=== PATIENT | male | born 1960 | race Caucasian/White ===

== ENCOUNTER 2016-12-30 14:11 | Inpatient (IN) | payer OTHER ==
[~2016-12-30] VITALS: Ht 180.3 cm; Wt 106.1 kg
[~2016-12-30 14:11] MED LIST: BENZ1TAB7 PO; OLAN5TAB PO; PARO20TA5 PO; ZLP5T PO
[2016-12-30 17:49] VITALS: BP 133/88; PULSE 90; RESP 18; O2SAT 96
--- NOTE | 2016-12-30 17:51 | NUR ---
Admit Patient admitted into room 1025 from Urgent Care. Patient ambulated to room from desk, was placed in a gown, oriented to room, and the call light is within reach. Denies pain, but states his LLE has occasional sharp pains. Assessment completed. Awaiting orders.
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
[2016-12-30] MEDS ORDERED: TRAZ-118 PO (19:53)
[2016-12-30] MEDS ORDERED: Ondansetron 2 mg/mL 2 mL Inj IVPUSH PRN (20:20)
[2016-12-30] MEDS ORDERED: Alum-Mag Hydrox-Simeth 30 mL Suspension PO PRN (20:20)
[2016-12-30] MEDS ORDERED: Polyethylene Glycol (PEG) 17 Gm Powder PO PRN (20:20)
[2016-12-30 20:40] VITALS: BP 124/70; PULSE 77; RESP 20; O2SAT 96
[2016-12-30] MEDS: Vancomycin Dose per Pharmacist XX SCH (20:40)
[2016-12-30] MEDS ORDERED: Vancomycin Inj 2,000 MG in 0.9% Sodium Chloride 500 ML IV ONE (21:00)
[2016-12-30 21:36] LABS: BASOPHILS % (AUTO) 0.2 % (0-3); EOSINOPHILS % (AUTO) 1.4 % (0-5); MONOCYTES % (AUTO) 10.2 % (4-12); Mean Corpuscular Hemoglobin 31.4 pg (27.0-35.0); Mean Corpuscular Volume 94.3 fL (81-100); NEUTROPHILS % (AUTO) 63.3 % (40-74); Platelet Count 222 bil/L (150-400)
[2016-12-30] MEDS ORDERED: CEPH500C PO (21:52)
[2016-12-30 22:01] LABS: INR 0.92 ratio
[2016-12-30 22:07] LABS: Magnesium 2.2 mg/dL (1.6-2.6)
--- NOTE | 2016-12-30 22:59 | PCM.CONPHA ---
Subjective Date of Service: Dec 30, 2016 Requesting Provider: Devante Jacobsen DO Left lower extremity cellulitis History of Present Illness worsening cellulitis of lower extremity, failed outpatient po Keflex and Rocephin iv one dose Reason for Pharmacy Consult: Vancomycin Dosing Objective Assessment/Plan Assessment/Plan A/ - 56 y/o male patient checked in from urgent care for worsening cellulitis on lower extremity which started a couple days ago. Vancomycin ordered for empirical coverage since patient has hx of MRSA, IVDU, and failed outpatient po Keflex - Afebrile. WBC: 8.1, blood cultures (2), nasal MRSA screen pending - ID consult requested in am - Wt: 105kg, ht: 180cm, SCr: 0.84 mg/dL, estimated clearance ~ 120 ml/min ( ABW, globalRP) BMI: 32.3kg/m2, t1/2~7hrs, Vd~63L P/ - Loading dose Vancomycin 2G iv, then 1250mg iv q8h. Trough level ordered before 4th dose @12/31 Pharmacy will continue to follow and make necessary adjustment Thank you for consulting clinical pharmacy in the care of this patient Ilia Valiente Dec 30, 2016 22:59
[2016-12-31] VITALS (7 sets, daily range): BP systolic 107–115; BP diastolic 63–88; PULSE 67–79; RESP 16–20; O2SAT 92–96
[2016-12-31] MEDS: Heparin 5,000 Unit/mL Inj SUBQ SCH ×3 (01:14→16:24)
--- NOTE | 2016-12-31 01:20 | NUR ---
Med Rec Pt able to state which pills he takes but is unsure of quantity, med rec complete based on his knowledge. Home keflex in drawer to be delivered to pharmacy, pt unable to sign now as he is sleeping and difficult to rouse. IV site on L hand infusing NS TKO until next abx dose. Cellulitis on lower leg has two outlines drawn by urgent care. Red center is spreading up and down leg, no open blisters at this time. Pt admitted to cocaine use 12/29, and hx of IV drug use was heroin several years ago. No sharps container in room, pt has been cooperative and no negative behaviors. Care continues
[2016-12-31] MEDS: Vancomycin Inj 1,250 MG in 0.9% Sodium Chloride 250 ML IV SCH ×3 (05:40→21:46)
[2016-12-31 05:50] LABS: APPEARANCE,URINE CLEAR (CLEAR,HAZY); COLOR,URINE YELLOW (YELLOW); OCCULT BLOOD,URINE TRACE (NEGATIVE)
[2016-12-31] MEDS: Vancomycin Dose per Pharmacist XX SCH (08:30)
[2016-12-31] MEDS: Albuterol-Ipratropium 3 mL Inhalation Solution NEB SCH ×2 (12:50→20:34)
--- NOTE | 2016-12-31 13:48 | NUR ---
Left Calf Left calf has shown some improvement compared to yesterday. Overnight and while in bed the patient has kept the left leg elevated on a pillow and there is a slight decrease in swelling and the patient denies any pain. Ambulating in room independently, general diet is well tolerated, and continues to be afebrile. Hourly rounding continues and continuing to assess changes in LLE.
--- NOTE | 2016-12-31 19:26 | PCM.PNMED ---
Subjective Date of Service Dec 31, 2016 Subjective Pt reports improved swelling in LLE, but says erythema is unchanged. Pain 2/10 LLE. Exam Vital Signs Vital Sign - Last Date Time Temp Pulse Resp B/P Pulse Ox O2 Delivery O2 Flow Rate FiO2 12/31/16 15:42 36.4 18 110/88 96 Room Air 12/31/16 12:53 67 Intake and Output 12/30/16 12/30/16 12/31/16 Cumulative From/Thru 15:00 23:00 07:00 12/30/16 20:42 - 12/31/16 06:30 Intake Total 440 ml 440 ml Output Total 1250 ml 1250 ml Balance -810 ml -810 ml Intake Oral 440 ml 440 ml Output Urine Total 1250 ml 1250 ml # Bowel Movements 0 0 Exam General: He is alert and oriented 3, resting comfortably in bed speaking in full sentences, in no apparent distress. Patient responds appropriately to questioning and is cordial. HEENT: NC/AT, eyes, PERRLA, EOMI, conjunctiva mildly bloodshot, neck, soft supple, no adenopathy, no JVD, no masses, no thyromegaly, throat mucous membranes pink and moist, no erythema, no exudates, no tonsillar swelling, no uvular deviation. Dentures on the top and partial on the bottom Lungs: Bilateral diffuse inspiratory neck score wheezes, no rhonchi, no crackles , no use of accessory muscles of respiration, moderate air movement, good respiratory effort. Heart: Regular rate and rhythm, no murmur, S1-S2 present, no rub, no click, no distant heart sounds, Abdomen: Protuberant, old midline scar near umbilicus measuring 15-20 cm, well- healed, abdomen is Soft, nontender, nondistended, bowel sounds active, no rebound, no guarding, Genitourinary: No CVA tenderness, no suprapubic tenderness, no Davies catheter, Extremities: Muscle strength, 5 out of 5 upper/lower extremity and symmetric laterally, reflexes 2 out of 4 upper/lower extremity and symmetric bilaterally, pulses equal and symmetric upper/lower extremity including radial and dorsalis pedis' The left lower extremity appears erythematous, warm, and edematous compared to the left. The Area of infection is located on the anterior leg/benton. There are 2 different lines of demarcation 1 surrounding the midportion and 1 surrounding the less erythematous portion. The erythema is crossing both lines of demarcation. There is normal. Sinus injury however there are too small to centimeter dimples located in the very center of the left lower extremity site infection that could be consistent with a prior injury. The erythema is wrapping around to the back of the grocery calf. The right lower extremity has a scaly rash with erythematous border on the dorsal foot consistent with tinea pedis. Severe onychomycosis of both lower extremity digits. Neurologic: See neurologically intact, PT in full sentences, no focal neurological signs, [id number], [id number], no pronator drift, no hemineglect. Skin: As previously stated Psychiatric: Mood is cheerful and mood and affect are congruent and appropriate. Lab and Diagnostics Result Diagram: 12/30/16212412/30/162124 Assessment & Plan PET is a pleasant 56-year-old male with past medical history of left lower extremity cellulitis, who presented for direct admit from urgent care after having failed outpatient treatment. He was admitted for IV antibiotics and medical management. # Acute onset left lower extremity cellulitis, present on at admission, active - Vital signs on presentation were as follows: Temperature 36.8, pulse 90, respiratory rate 18, blood pressure 133/88 with a map 103, oxygen 96% on room air. - Patient does not meet sepsis criteria. - Patient was treated with Rocephin shot at urgent care and given outpatient by mouth antibiotics Keflex 500 mg every 6. Patient failed this regimen - Differential diagnosis includes beta-hemolytic streptococcal infection of the skin, versus Staphylococcus aureus (MSSA vs MRSA) - Patient did grow oxacillin resistant Staphylococcus aureus according to [facility] record from 2008 - He again had microscopic evidence in 2015 of the skin that showed gram- positive cocci. - Physical exam showed 12 x 8 cm dark erythematous, warm, edematous skin surrounded by a music agent area of redness both of which were extending beyond the lines of demarcation. - There was no purulent material available for culture - MRSA nasal swab ordered and pending - Cultures 2 ordered and pending - cellulitis is consistent with a streptococcal skin infection, however given patient's history of oxacillin resistant staph aureus will start patient on vancomycin IV, pharmacy to dose. - Transition to PO abx for discharge. # History of tobacco abuse - Nicotine patch # History of undiagnosed mood disorder on antipsychotic medication - Denies medication olanzapine # History of anxiety and depression -We will continue outpatient medication paroxetine # Insomnia - We will continue medication trazodone when necessary # Unspecified movement disorder - We will continue Cogentin Disposition: Admitted to in patient service with expected length of stay greater than 2 days, secondary to severity of presenting symptoms, treatment plan, complexity of clinical work up, and risk of adverse events. CODE STATUS: Full code PCP: Della Davis MD DVT PE prophylaxis: SubQ heparin Q8H Contact: VTE Prophylaxis: Sub-Q Heparin (Unfractionated) Resuscitation Status: CPR: Attempt Resuscitation Antonio Baxter MD Dec 31, 2016 19:26 Antonio Baxter MD Dec 31, 2016 19:26
[2016-12-31] MEDS ORDERED: PARoxetine 20 mg Tablet PO SCH (21:00)
[2016-12-31] MEDS ORDERED: Vancomycin Serum Trough XX ONE (21:30)
--- NOTE | 2016-12-31 21:31 | PCM.PHAPRO ---
Progress Date of Service: Dec 31, 2016 Left lower extremity cellulitis Vancomycin dosing by pharmacy for 56 y/o man A: * This patient is on vancomycin 1250 mg IV every 8 hours * A trough level came back tonight at 11.3 mcg/mL * SCr on 12/30 was 0.84 mg/dL * MRSA PCR is negative, blood cultures are pending P: * Continue current vancomycin dose * Target a trough range of 10 - 15 mcg/mL * SCr lab this morning * Consider stopping vancomycin pending cultures Thank you. Pharmacy will continue to follow this patient. Amaya Garcia Dec 31, 2016 21:30
[2017-01-01] MEDS: Heparin 5,000 Unit/mL Inj SUBQ SCH ×2 (00:37→09:01)
[2017-01-01] MEDS: Albuterol-Ipratropium 3 mL Inhalation Solution NEB SCH ×2 (02:30→08:27)
--- NOTE | 2017-01-01 04:47 | NUR ---
Pain/Redness Pt states he has no pain r/t cellulitis in his LLE. Says it is just pressure and tolerable. Redness has decreased from outline that was placed 2 days ago in outpatient clinic. Swelling has decreased as well. Pt behavior's appropriate, very pleasant and cooperative. Tolerating general diet and fluids. Care continues.
[2017-01-01 04:56] VITALS: BP 118/77; PULSE 68; RESP 16; O2SAT 98
[2017-01-01] MEDS: Vancomycin Inj 1,250 MG in 0.9% Sodium Chloride 250 ML IV SCH (06:29)
[2017-01-01 06:54] LABS: BASOPHILS % (AUTO) 0.6 % (0-3); EOSINOPHILS % (AUTO) 2.7 % (0-5); MONOCYTES % (AUTO) 9.1 % (4-12); Mean Corpuscular Hemoglobin 30.8 pg (27.0-35.0); NEUTROPHILS % (AUTO) 49.7 % (40-74); Platelet Count 237 bil/L (150-400)
[2017-01-01 08:28] VITALS: PULSE 79; RESP 16; O2SAT 93
[2017-01-01] MEDS: Vancomycin Dose per Pharmacist XX SCH (08:30)
[2017-01-01 08:53] VITALS: BP 123/73; PULSE 89; RESP 20; O2SAT 94
--- NOTE | 2017-01-01 10:21 | PCM.PNMED ---
Subjective Date of Service Jan 01, 2017 Subjective Pt reports improved pain and swelling in LLE. Erythema has also decreased. Exam Vital Signs Vital Sign - Last Date Time Temp Pulse Resp B/P Pulse Ox O2 Delivery O2 Flow Rate FiO2 01/01/17 08:53 36.4 89 20 123/73 94 Room Air Intake and Output 12/31/16 12/31/16 01/01/17 Cumulative From/Thru 15:00 23:00 07:00 12/30/16 20:42 - 01/01/17 06:28 Intake Total 3255 ml 2120 ml 5815 ml Output Total 1400 ml 2225 ml 4875 ml Balance 1855 ml -105 ml 940 ml Intake Oral 1737 ml 1840 ml 4017 ml IV Total 1518 ml 280 ml 1798 ml Output Urine Total 1400 ml 2225 ml 4875 ml # Bowel Movements 0 0 0 Exam Gen: NAD, AOx3. HEENT: NCAT, PERRLA, EOMI, MMM, sclera anicteric. Neck: Soft, supple, symmetrical, no thyromegaly/JVD/LAD. Resp: CTAB, +wheezing CV: RRR, nl S1/S2, no M/R/G, Abd: Soft, (+) BS, no guarding/rebound/organomegaly. Ext: +PP, -edema Skin: LLE- 12 x 8 cm dark erythematous, warm, edematous skin surrounded by a copper miner blasting area of redness both of which were extending beyond the lines of demarcation. Neuro/Psych: No focal deficits, CN II-XII grossly intact. AAOx3, cooperative , appropriate mood/affect. IVs and Medications Medications Reviewed: Medications were reviewed in detail Lab and Diagnostics Result Diagram: 01/01/17 0550 01/01/17 0550 Microbiology Laboratory Tests Microbiology 12/30/16 Blood Culture - Preliminary, Resulted NO GROWTH AFTER 24 HOURS 12/30/16 MRSA (PCR) - Final, Complete Assessment & Plan Pt is a pleasant 56-year-old male with past medical history of left lower extremity cellulitis, who presented for direct admit from urgent care after having failed outpatient treatment. He was admitted for IV antibiotics and medical management. # Acute onset left lower extremity cellulitis, present on at admission, active - Vital signs on presentation were as follows: Temperature 36.8, pulse 90, respiratory rate 18, blood pressure 133/88 with a map 103, oxygen 96% on room air. - Patient does not meet sepsis criteria. - Patient was treated with Rocephin shot at urgent care and given outpatient by mouth antibiotics Keflex 500 mg every 6. Patient failed this regimen - Differential diagnosis includes beta-hemolytic streptococcal infection of the skin, versus Staphylococcus aureus (MSSA vs MRSA) - Patient did grow oxacillin resistant Staphylococcus aureus according to [facility] record from 2008 - He again had microscopic evidence in 2014 of the skin that showed gram- positive cocci. - Physical exam showed 12 x 8 cm dark erythematous, warm, edematous skin surrounded by a copper miner blasting area of redness both of which were extending beyond the lines of demarcation. - There was no purulent material available for culture - MRSA nasal swab- negative. - Cultures 2= NGTD. - cellulitis is consistent with a streptococcal skin infection, however given patient's history of oxacillin resistant staph aureus will started vancomycin IV. -Pt Erythema, swelling have improved this AM. Will discharge with 14 day course of Doxycycline 100mg twice a day. Follow up with PCP in one week or sooner if symptoms return or worsen. # History of tobacco abuse - Nicotine patch, pt was wheezing on exam and likely has COPD. This would be new diagnosis. Will need Pulmonary Function testing as outpatient. # History of undiagnosed mood disorder on antipsychotic medication - Denies medication olanzapine # History of anxiety and depression -We will continue outpatient medication paroxetine # Insomnia - We will continue medication trazodone when necessary # Unspecified movement disorder - We will continue Cogentin Disposition: Admitted to in patient service with expected length of stay greater than 2 days, secondary to severity of presenting symptoms, treatment plan, complexity of clinical work up, and risk of adverse events. -Will discharge with 14 day course of Doxycycline 100mg twice a day. Follow up with PCP in one week or sooner if symptoms return or worsen. -Wheezing on exam and likely has COPD. This would be new diagnosis. Will need Pulmonary Function testing as outpatient. CODE STATUS: Full code PCP: Della Davis MD DVT PE prophylaxis: SubQ heparin Q8H Contact: Pain Evaluation: Adequate Pain Control GI Prophylaxis: Not indicated VTE Prophylaxis: Sub-Q Heparin (Unfractionated) Resuscitation Status: CPR: Attempt Resuscitation Time spent 60 MINUTES Antonio Baxter MD Jan 01, 2017 10:20
--- NOTE | 2017-01-01 10:27 | PCM.DIMED ---
Discharge Instructions Date of Service Jan 01, 2017 Dates of Hospitalization Dec 30, 2016 at 17:32 Discharge Diagnosis Discharge Diagnosis # Acute onset left lower extremity cellulitis, present on at admission # History of tobacco abuse # History of undiagnosed mood disorder # History of anxiety and depression # Insomnia Medication Instructions Additional med instructions -Will discharge with 14 day course of Doxycycline 100mg twice a day. Follow up with PCP in one week or sooner if symptoms return or worsen. Test Results Test Results Laboratory Tests Test 12/31/16 20:14 01/01/17 05:50 Vancomycin Level Trough 11.3mcg/mL White Blood Count 7.0th/mm3 (3.8-10.1) Red Blood Count 4.00mil/mm3 (4.40-5.80) Hemoglobin 12.3g/dL (13.8-17.2) Hematocrit 38.4% (41.0-50.0) Mean Corpuscular Volume 96.0fL (81-100) Mean Corpuscular Hemoglobin 30.8pg (27.0-35.0) Mean Corpuscular Hemoglobin Concent 32.0% (32.0-37.0) Red Cell Distribution Width 13.8% (12.3-15.4) Platelet Count 237bil/L (150-400) Neutrophils (%) (Auto) 49.7% (40-74) Lymphocytes (%) (Auto) 36.9% (14-46) Monocytes (%) (Auto) 9.1% (4-12) Eosinophils (%) (Auto) 2.7% (0-5) Basophils (%) (Auto) 0.6% (0-3) Sodium Level 142mEq/L (134-144) Potassium Level 4.3mEq/L (3.5-5.2) Chloride Level 104mEq/L (97-108) Carbon Dioxide Level 23mmol/L (18-29) Blood Urea Nitrogen 8mg/dL (6-24) Creatinine 0.80mg/dL (0.76-1.27) Estimat Glomerular Filtration Rate 106mL/min (>59) Glucose Level 114mg/dL (60-99) Calcium Level 8.9mg/dL (8.5-10.1) Microbiology 12/30/16 Blood Culture - Preliminary, Resulted NO GROWTH AFTER 24 HOURS 12/30/16 MRSA (PCR) - Final, Complete Diet Discharge Diet: No restrictions Activity Discharge Activity: No restrictions Call your provider Call your provider for: Fever or Chills Patient Instructions Patient Instructions -Will discharge with 14 day course of Doxycycline 100mg twice a day. Follow up with PCP in one week or sooner if symptoms return or worsen. -Wheezing on exam and likely has COPD. This would be new diagnosis. Will need Pulmonary Function testing as outpatient. Follow-up with PCP in: 1 week Antonio Baxter MD Jan 01, 2017 10:27
[2017-01-01] MEDS ORDERED: DOXY100C2 PO (10:33)
--- NOTE | 2017-01-01 11:25 | NUR ---
Discharge: Pt given all dc instructions. Iv Saline lock dc'd by primary nurse. Pt instructed in post op primary care visit that was scheduled for him on January 09 at [address] Della Davis. Script sent electronically to [facility]. Pt dcd to private vehicle at 1110.
--- NOTE | 2017-01-01 12:24 | NUR ---
Social Work- Multi-Disciplinary Rounds/ Screening/Discharge Data: EMR reviewed. Pt is a 56 year old male admitted for cellulitis per H&P. Pt's insurance is [facility]. Pt's PCP is Della Davis MD. Pt's NOK is daughter Lay Cruz [phone]. Per multi-disciplinary rounds, pt is medically stable for discharge on PO abx. No medical needs anticipated. Prior to pt's discharge MANAGER BABY spoke with pt at bedside regarding discharge plan, substance use, and mental health. Pt alert and oriented x3. Pt resides in [facility] with roommates where he is independent at baseline. SW acknowledges order for substance use assessment. Pt was pleasant but declined completing assessment as he does not feel that his use is a problem. Pt reports last cocaine use on Thursday and a week prior to that. Pt reports that he drinks 3-4 beers daily. Pt reports no concerns about stopping drinking or cocaine. Pt does not feel that he is addicted. Pt does not identify any withdrawal symptoms if he does not drink or use cocaine. Pt reports his roommates do not use substances. Pt's friends and family are a support for him in his sobriety. Pt expressed limited interest in stopping using as this is not something that concerns him. Per pt, pt has history of delusional disorder and takes medications for this. Pt feels this is well managed at this time. Pt reports his PCP and provider Dr. Duran at [facility] manage his medications. Pt denies any concerns related to obtaining his medications and pt reports taking them exactly as prescribed. Pt reports that his PCP and mental health provider are aware of his substance use. Pt reports seeing his therapist 4 times weekly and states that this is very helpful and he goes to all appointments. Pt reports that his friends and family are a good support for him and he sees his children in [place] monthly. Pt does not drive but takes the bus. Pt confirms that he is familiar with the bus system and will be using the bus to get home at discharge. Pt declined any concerns or questions related to discharge. Pt's PCP appointment was scheduled for him on January 09 at [address] Della Davis. [facility]. No discharge needs identified. Assessment: Pt who is independent at baseline. Plan: Pt discharged to home with no discharge needs identified. Pt's PCP appointment was scheduled for him on January 09 at [address] Della Davis. Script sent electronically to [facility]. SHARA Vail
[2017-01-02] MEDS ORDERED: Vancomycin Serum Trough XX ONE (04:30)
--- NOTE | 2017-01-02 17:51 | PCM.DC.MED ---
Discharge Summary Date of Service Jan 02, 2017 Dates of Hospitalization Date of Hospital Admission Dec 30, 2016 at 17:32 Date of Discharge: Jan 02, 2017 Providers: Admitting Physician: Kerry Alberto MD Primary Care Physician: Della Davis MD Attending Physician: Kerry Alberto MD Diagnosis at Time of Discharge Diagnosis at Time of Discharge # Acute onset left lower extremity cellulitis, present on at admission # History of tobacco abuse # History of undiagnosed mood disorder # History of anxiety and depression # Insomnia Brief History Christiano is a pleasant 56-year-old male with past medical history of mood disorder on olanzapine, anxiety and depression, and history of prior left lower extremity skin infection/cellulitis in 2014, history of current cocaine abuse, patient snorts cocaine last used yesterday, history of alcohol dependence, who presented for direct admit from urgent care having failed outpatient antibiotics for worsening left lower extremity redness, swelling, warmth, onset 12/26/2016. Patient states that he was a softball game and had noticed that his left lower extremity began to feel warm and he thought that it was a sunburn. Patient reports that he began to scratch the left lower extremity which progressively worsened over Thursday and Thursday. He describes the discomfort as both itchy, and pressure-like sensation. The leg becomes painful when he stands. Patient denies any pets at home, will perform animal's, recent travel, or waiting in the [place] The patient was seen in urgent care yesterday and diagnosed with cellulitis. He received a single shot of Rocephin and was discharged home with Keflex 500 mg every 6 hours. Patient had taken a total of 4 Keflex doses when he returned for follow-up to the urgent care today. It was noted in urgent care today that the erythema and warmth and swelling had increased beyond the line of the demarcation. Associated symptoms include chills, patient also described a brief 10 minute period on Thursday where he experienced bilateral numbness in his hands that he had never experienced prior. Of note patient has history of gram-positive cocci growth in 2014 as well as oxacillin resistant Streptococcus aureus in 2008 according to [employer] records. 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 He denies any other medical history. Patient denied history of recent trauma to the left lower extremity. Denied Fevers, sweats, headaches, chest pain, shortness of breath, nausea, vomiting, cough, sore throat, dyspnea, diarrhea, constipation, dysuria, TB or family history of TB, recent travel. Vital signs on presentation were as follows: Temperature 36.8, pulse 90, respiratory rate 18, blood pressure 133/88 with a map 103, oxygen 96% on room air. Patient was admitted to the hospital for cellulitis and treatment with IV antibiotics of the left lower extremity, after having failed outpatient treatment. Hospital Course Pt is a pleasant 56-year-old male with past medical history of left lower extremity cellulitis, who presented for direct admit from urgent care after having failed outpatient treatment. He was admitted for IV antibiotics and medical management. # Acute onset left lower extremity cellulitis, present on at admission, active - Vital signs on presentation were as follows: Temperature 36.8, pulse 90, respiratory rate 18, blood pressure 133/88 with a map 103, oxygen 96% on room air. - Patient does not meet sepsis criteria. - Patient was treated with Rocephin shot at urgent care and given outpatient by mouth antibiotics Keflex 500 mg every 6. Patient failed this regimen - Differential diagnosis includes beta-hemolytic streptococcal infection of the skin, versus Staphylococcus aureus (MSSA vs MRSA) - Patient did grow oxacillin resistant Staphylococcus aureus according to [employer] record from 2008 - He again had microscopic evidence in 2015 of the skin that showed gram- positive cocci. - Physical exam showed 12 x 8 cm dark erythematous, warm, edematous skin surrounded by a fish net maker area of redness both of which were extending beyond the lines of demarcation. - There was no purulent material available for culture - MRSA nasal swab- negative. - Cultures 2= NGTD. - cellulitis is consistent with a streptococcal skin infection, however given patient's history of oxacillin resistant staph aureus will started vancomycin IV. -Pt Erythema, swelling have improved this AM. Will discharge with 14 day course of Doxycycline 100mg twice a day. Follow up with PCP in one week or sooner if symptoms return or worsen. # History of tobacco abuse - Nicotine patch, pt was wheezing on exam and likely has COPD. This would be new diagnosis. Will need Pulmonary Function testing as outpatient. # History of undiagnosed mood disorder on antipsychotic medication - Denies medication olanzapine # History of anxiety and depression -We will continue outpatient medication paroxetine # Insomnia - We will continue medication trazodone when necessary # Unspecified movement disorder - We will continue Cogentin Disposition: Admitted to in patient service with expected length of stay greater than 2 days, secondary to severity of presenting symptoms, treatment plan, complexity of clinical work up, and risk of adverse events. -Will discharge with 14 day course of Doxycycline 100mg twice a day. Follow up with PCP in one week or sooner if symptoms return or worsen. -Wheezing on exam and likely has COPD. This would be new diagnosis. Will need Pulmonary Function testing as outpatient. CODE STATUS: Full code PCP: Della Davis MD DVT PE prophylaxis: SubQ heparin Q8H Contact: Exam Vital Signs (Last) Date Time Temp Pulse Resp B/P Pulse Ox O2 Delivery O2 Flow Rate FiO2 01/01/17 08:53 36.4 89 20 123/73 94 Room Air Test 12/30/16 21:25 12/31/16 05:00 12/31/16 08:56 12/31/16 20:14 Prothrombin Time 9.8sec (8.1-12.5) Prothromb Time International Ratio 0.92ratio Activated Partial Thromboplast Time 30.1sec (22.8-33.0) Hemoglobin A1c 5.8% (4.8-5.6) Magnesium Level 2.2mg/dL (1.6-2.6) Total Bilirubin 0.5mg/dL (0.0-1.2) Aspartate Amino Transf (AST/SGOT) 15U/L (0-50) Alanine Aminotransferase (ALT/SGPT) 14U/L (0-44) Alkaline Phosphatase 66U/L (25-150) Total Protein 6.9g/dL (6.4-8.4) Albumin 3.5g/dL (3.4-5.0) Hold Monahan Top Tube Received (Received) Urine Color Yellow (YELLOW) Urine Appearance Clear (CLEAR,HAZY) Urine pH 6.0 (5.0-8.0) Urine Specific Garrison 1.020 (1.003-1.035) Urine Protein Negativemg/dL (NEG,TRACE) Urine Glucose (UA) Negativemg/dL (NEGATIVE) Urine Ketones Negativemg/dL (NEGATIVE) Urine Occult Blood Trace (NEGATIVE) Urine Nitrite Negative (NEGATIVE) Urine Bilirubin Negative (NEGATIVE) Urine Urobilinogen 1.0mg/dL (NORMAL) Urine Leukocyte Esterase Negative (NEGATIVE) Urine RBC 0-2/hpf (0-2) Urine WBC 0-5/hpf (0-5) Urine Epithelial Cells None/hpf (NONE-MOD) Urine Crystals None seen (NONE SEEN) Urine Bacteria Few/hpf (NONE-FEW) Urine Hyaline Casts None/lpf (NONE) Urine Granular Casts Occasional (NONE SEEN) Urine Waxy Casts None seen (NONE SEEN) Urine Red Blood Cell Casts None seen (NONE SEEN) Urine White Blood Cell Casts None seen (NONE SEEN) Urine Mucus None seen (None Seen) Urine Trichomonas None seen (NONE SEEN) Urine Yeast None (NONE SEEN) Urinalysis Comment None Urine Culture Reflexed Not indicated Urine Opiates Screen Negative Urine Methadone Screen Negative Urine Barbiturates Screen Negative Urine Amphetamines Screen Negative Urine Benzodiazepines Screen Negative Urine Cocaine Metabolite Screen Positive Urine Cannabinoids Screen Negative Procalcitonin 0.65ng/mL (0.00-0.08) Vancomycin Level Trough 11.3mcg/mL Test 01/01/17 05:50 White Blood Count 7.0th/mm3 (3.8-10.1) Red Blood Count 4.00mil/mm3 (4.40-5.80) Hemoglobin 12.3g/dL (13.8-17.2) Hematocrit 38.4% (41.0-50.0) Mean Corpuscular Volume 96.0fL (81-100) Mean Corpuscular Hemoglobin 30.8pg (27.0-35.0) Mean Corpuscular Hemoglobin Concent 32.0% (32.0-37.0) Red Cell Distribution Width 13.8% (12.3-15.4) Platelet Count 237bil/L (150-400) Neutrophils (%) (Auto) 49.7% (40-74) Lymphocytes (%) (Auto) 36.9% (14-46) Monocytes (%) (Auto) 9.1% (4-12) Eosinophils (%) (Auto) 2.7% (0-5) Basophils (%) (Auto) 0.6% (0-3) Sodium Level 142mEq/L (134-144) Potassium Level 4.3mEq/L (3.5-5.2) Chloride Level 104mEq/L (97-108) Carbon Dioxide Level 23mmol/L (18-29) Blood Urea Nitrogen 8mg/dL (6-24) Creatinine 0.80mg/dL (0.76-1.27) Estimat Glomerular Filtration Rate 106mL/min (>59) Glucose Level 114mg/dL (60-99) Calcium Level 8.9mg/dL (8.5-10.1) Microbiology Results Laboratory Tests Microbiology 12/30/16 Blood Culture - Preliminary, Resulted NO GROWTH AFTER 24 HOURS 12/30/16 MRSA (PCR) - Final, Complete Discharge Medications Discharge Medications Benztropine Mesylate (Benztropine Mesylate) 1 Mg Tablet 1 MG PO BID Prescribed by: NATA TONG MD Doxycycline Hyclate (Doxycycline Hyclate) 100 Mg Capsule 100 MG PO BID Prescribed by: KERRY ALBERTO MD Olanzapine (Olanzapine) 5 Mg Tablet 10 MG PO DAILY Prescribed by: NATA TONG MD Olanzapine (Olanzapine) 5 Mg Tablet 15 MG PO HS Prescribed by: NATA TONG MD Paroxetine (Paroxetine) 20 Mg Tablet 20 MG PO HS Prescribed by: NATA TONG MD Trazodone (Trazodone) 100 Mg Tablet 100 PO HS (Reported) As needed Zolpidem (Ambien) 5 Mg Tablet 5 MG PO HS PRN PRN Insomnia Prescribed by: ROBERT RAMIREZ MD Zolpidem (Ambien) 5 Mg Tablet 5 MG PO HS PRN PRN For Insomnia (Reported) Additional med instructions -Will discharge with 14 day course of Doxycycline 100mg twice a day. Follow up with PCP in one week or sooner if symptoms return or worsen. Followup Plan Discharge Diet: No restrictions Discharge Activity: No restrictions Patient Instructions -Will discharge with 14 day course of Doxycycline 100mg twice a day. Follow up with PCP in one week or sooner if symptoms return or worsen. -Wheezing on exam and likely has COPD. This would be new diagnosis. Will need Pulmonary Function testing as outpatient. Follow-up with PCP in: 1 week Kerry Alberto MD Jan 02, 2017 17:51
== END 2017-01-01 11:12 | disposition home or self-care (01) | DRG 603 ==
LOC: OSC 17:32
PROVIDERS: ADMIT Internal Medicine; ATTEND Internal Medicine
DX: L03.116 Cellulitis of left lower limb (principal); G25.9 Extrapyramidal and movement disorder, unspecified; F41.8 Other specified anxiety disorders; F14.10 Cocaine abuse, uncomplicated; G47.00 Insomnia, unspecified; F17.200 Nicotine dependence, unspecified, uncomplicated; Z72.89 Other problems related to lifestyle

== ENCOUNTER 2017-01-07 15:58 | Inpatient (IN) | payer OTHER ==
[~2017-01-07] VITALS: Ht 180.3 cm; Wt 104.5 kg
[~2017-01-07 15:58] MED LIST changes: +DOXY100C2 PO; +TRAZ-118 PO
[2017-01-07 16:01] VITALS: BP 153/89; PULSE 71; RESP 20; O2SAT 98
--- NOTE | 2017-01-07 17:09 | ED.REPORT ---
HPI-Extremity Problem Lower Date of Service Jan 07, 2017 ED Provider: Macario Barillas MD History of Present Illness: left lower leg cellulitis, taking doxycycline, in hospital last week for same, sent home. had trouble getting his antibiotics, took 2 days before resuming his antibiotic. some initial improvement but now worse, increase in swelling and erthyma. primary care is shan at [facility]. Nursing Notes Stated Complaint: CELLULITIS/SENT FROM URGENT CARE Chief Complaint: Skin Rash/Abscess Nursing Notes Reviewed: Yes Allergies: Coded Allergies: No Known Allergies (Verified , 08/01/15) Scheduled Benztropine Mesylate (Benztropine Mesylate) 1 Mg Tablet 1 MG PO BID Doxycycline Hyclate (Doxycycline Hyclate) 100 Mg Capsule 100 MG PO BID Olanzapine (Olanzapine) 5 Mg Tablet 15 MG PO HS Olanzapine (Olanzapine) 10 Mg Tablet 10 MG PO QAM Paroxetine (Paroxetine) 20 Mg Tablet 20 MG PO HS Trazodone (Trazodone) 100 Mg Tablet 100 PO HS General Time Seen by MD: 17:08 Chief Complaint Other (left leg cellulitis) Hx Obtained From: Patient Symptom Duration: More than a week... (2 weeks) Past Medical History Past Medical History Notes: Family contacts: Yosi Cruz (son): [phone] Lay Cruz (daughter) Patient was recently admitted from 06/05-06/12 after being EMMETT'd after being found to be a danger to himself and others. Patient was also under the influence of alcohol at that time believed that his family was conspiring against him. Dx Acute psychosis Past Medical History Per previous H&P: 1. Delusional disorder, provisional. 2. Previous polysubstance abuse including IV heroin and occasional current cocaine Past Surgical History denies Family History n/a Smoking History Current Every Day Smoker Social History Alcohol Use: >5 per day Drug Use: Cocaine Other Social History: Good social support, Local resident Occupation has a room in a boarding house, work at [employer] as a [employer] Ambulatory Status Independent Review of Systems Basic Review of Systems Eyes: Vision NL, No discharge : No dysuria, No frequency Psychiatric: Normal thought content Physical Exam Initial Vital Signs Vital Signs (First) Date Time Temp Pulse Resp B/P Pulse Ox O2 Delivery O2 Flow Rate FiO2 01/07/17 16:01 36.8 71 20 153/89 98 Room Air Initial VS: Reviewed, Vital signs normal General/Constitutional: Well-developed, Well-nourished Head / Eyes: Atraumatic, Normocephalic, PERRL ENT: Mucous membranes moist, Conjunctiva normal, No scleral icterus Neck: Supple, Non-tender, Full range of motion Respiratory: Breath sounds normal, Clear to auscultation, No respiratory distress Cardiovascular: Regular rate & rhythm, Heart sounds normal, Intact distal pulses Abdomen / GI: Soft, Non-tender, No guarding, No rebound, No distention Back: No CVA tenderness Lymphatic: No lymphadenopathy Upper Extremities: Vascular intact, Neuro intact, No swelling, No tenderness Skin: Warm, Dry, No cyanosis Neurologic: Alert, Oriented, Nonfocal Psychiatric: Mood/affect normal, Behavior normal, Normal thought content left lower leg with erthyma and swelling. circumfential erthyma at lower leg. US is negative for any clot formation General/Constitutional: Awake, Alert, No acute distress Respiratory / Chest: Atraumatic, Breath sounds NL, Breath sounds = bilat, No respiratory distress Cardiovascular: Heart rate NL, Regular rhythm, Heart sounds NL Interpretation & Diagnostics Lab Results Interpretation Result Diagram: 01/07/17 1715 01/07/17 1715 Test 01/07/17 17:15 White Blood Count 9.6th/mm3 (3.8-10.1) Red Blood Count 4.15mil/mm3 (4.40-5.80) Hemoglobin 12.9g/dL (13.8-17.2) Hematocrit 39.4% (41.0-50.0) Mean Corpuscular Volume 94.9fL (81-100) Mean Corpuscular Hemoglobin 31.1pg (27.0-35.0) Mean Corpuscular Hemoglobin Concent 32.7% (32.0-37.0) Red Cell Distribution Width 13.5% (12.3-15.4) Platelet Count 369bil/L (150-400) Neutrophils (%) (Auto) 56.6% (40-74) Lymphocytes (%) (Auto) 32.0% (14-46) Monocytes (%) (Auto) 8.3% (4-12) Eosinophils (%) (Auto) 2.4% (0-5) Basophils (%) (Auto) 0.3% (0-3) Sodium Level 136mEq/L (134-144) Potassium Level 4.2mEq/L (3.5-5.2) Chloride Level 100mEq/L (97-108) Carbon Dioxide Level 21mmol/L (18-29) Blood Urea Nitrogen 13mg/dL (6-24) Creatinine 0.88mg/dL (0.76-1.27) Estimat Glomerular Filtration Rate 95mL/min (>59) Glucose Level 94mg/dL (60-99) Lactic Acid Level 1.0mmol/L (0.4-2.0) Calcium Level 9.7mg/dL (8.5-10.1) Total Bilirubin 0.2mg/dL (0.0-1.2) Aspartate Amino Transf (AST/SGOT) 14U/L (0-50) Alanine Aminotransferase (ALT/SGPT) 17U/L (0-44) Alkaline Phosphatase 64U/L (25-150) Total Protein 6.9g/dL (6.4-8.4) Albumin 3.5g/dL (3.4-5.0) Re-Eval/Medical Decision Med Decision/Clinical Course 56 year old male presents to the ER for "antibiotics that work" Patient was in the hospital last week with discharge on 01/01/2017 for cellulitis. Discharged on doxycycline. Patient states took 2 days before he was able to get his medication. He started the medication and initially thought things were improving but on waking this am the erthyma and swelling had increased. No sign of any clot formation or hematoma Discharge & Departure Impression: Primary Impression: Cellulitis Site of cellulitis of extremity: lower extremity Laterality: left Disposition: ADMITTED TO HOSPITAL Patient Instructions: Cellulitis (ED) Referrals: Della Davis MD (PCP) EDSupervising Provider for APC: Macario Barillas MD copies to: Della Davis MD, Sue ARNP Jan 07, 2017 17:09
--- NOTE | 2017-01-07 17:09 | ED.REPORT ---
HPI-General Illness Date of Service Jan 07, 2017 ED Provider: Nursing Notes Stated Complaint: CELLULITIS/SENT FROM URGENT CARE Chief Complaint: Skin Rash/Abscess Allergies: Coded Allergies: No Known Allergies (Verified , 08/01/15) Scheduled Benztropine Mesylate (Benztropine Mesylate) 1 Mg Tablet 1 MG PO BID Doxycycline Hyclate (Doxycycline Hyclate) 100 Mg Capsule 100 MG PO BID Olanzapine (Olanzapine) 5 Mg Tablet 10 MG PO DAILY Olanzapine (Olanzapine) 5 Mg Tablet 15 MG PO HS Paroxetine (Paroxetine) 20 Mg Tablet 20 MG PO HS Trazodone (Trazodone) 100 Mg Tablet 100 PO HS Scheduled PRN Zolpidem (Ambien) 5 Mg Tablet 5 MG PO HS PRN PRN Insomnia Zolpidem (Ambien) 5 Mg Tablet 5 MG PO HS PRN PRN For Insomnia General Time Seen by MD: 17:08 Past Medical History Past Medical History Notes: Family contacts: Yosi Cruz (son): [phone] Lay Cruz (daughter) Patient was recently admitted from 06/05-06/12 after being EMMETT'd after being found to be a danger to himself and others. Patient was also under the influence of alcohol at that time believed that his family was conspiring against him. Dx Acute psychosis Past Medical History Per previous H&P: 1. Delusional disorder, provisional. 2. Previous polysubstance abuse including IV heroin and occasional current cocaine Past Surgical History denies Family History n/a Smoking History Current Every Day Smoker Social History Alcohol Use: >5 per day Drug Use: Cocaine Other Social History: Good social support, Local resident Ambulatory Status Independent Physical Exam Vital Signs Vital Signs Date Time Temp Pulse Resp B/P Pulse Ox O2 Delivery O2 Flow Rate FiO2 01/07/17 16:01 36.8 71 20 153/89 98 Room Air Discharge & Departure Referrals: Della Davis MD (PCP) Macario Barillas MD Jan 07, 2017 17:08
[2017-01-07] MEDS ORDERED: 0.9% Sodium Chloride 1,000 ML IV ONE (17:20)
[2017-01-07 17:22] LABS: BASOPHILS % (AUTO) 0.3 % (0-3)
[2017-01-07 17:30] LABS: EOSINOPHILS % (AUTO) 2.4 % (0-5); MONOCYTES % (AUTO) 8.3 % (4-12); Mean Corpuscular Hemoglobin 31.1 pg (27.0-35.0); Mean Corpuscular Volume 94.9 fL (81-100); NEUTROPHILS % (AUTO) 56.6 % (40-74); Platelet Count 369 bil/L (150-400)
[2017-01-07] MEDS ORDERED: Ondansetron 2 mg/mL 2 mL Inj IVPUSH PRN ×2 (18:10→20:10)
[2017-01-07] MEDS ORDERED: Alum-Mag Hydrox-Simeth 30 mL Suspension PO PRN ×2 (18:10→20:10)
[2017-01-07] MEDS ORDERED: OLAN10TA19 PO (18:13)
--- NOTE | 2017-01-07 18:54 | DRSVH ---
PROCEDURE: US VEINOUS LEG DUPLEX UNILATERAL, LEFT INDICATIONS: swelling erthyma TECHNIQUE: Real-time imaging, as well as color and pulse Doppler interrogation, were performed of the lower extr emity deep veins from the inguinal ligament to the popliteal fossa. COMPARISON: None. FINDINGS: The deep veins are normally compressible, and free of intraluminal thrombus. Color and pu lse Doppler demonstrate normal phasic intraluminal flow. There is normal augmentation response to di stal compression maneuver. Left groin inguinal lymph nodes measuring 1.9 cm IMPRESSION: No evidence of deep venous thrombosis. Enlarged left inguinal lymph nodes, nonspecific. Please correlate clinically. Dictated by: Freddy Lloyd M.D. on 01/07/2017 at 18:49 Approved by: Freddy Lloyd M.D. on 01/07/2017 at 18:52
[2017-01-07 19:00] VITALS: BP 159/89; PULSE 62; RESP 16; O2SAT 99
--- NOTE | 2017-01-07 19:01 | NUR ---
Admit Admit completed by admit nurse, arrival to the unit 1845 and vitals done by day shift prior to this nurse's arrival.
[2017-01-07] MEDS ORDERED: Polyethylene Glycol (PEG) 17 Gm Powder PO PRN (20:10)
[2017-01-07] MEDS: Vancomycin Dose per Pharmacist XX SCH (20:30)
--- NOTE | 2017-01-07 20:32 | PCM.HPMED ---
Subjective Date of Service Jan 07, 2017 Primary Provider: Admitting Physician: Madie Bishop DO Primary Care Physician: Della Davis MD Attending Physician: Madie Bishop DO Admit Status: From the Emergency Department, Full Admit Chief Complaint: Increasing left leg redness and swelling History of Present Illness: This is a 56-year-old male who was recently admitted to this hospital with left leg cellulitis and was treated with IV vancomycin. He does have a history of oxacillin resistant staph aureus in the past. He was discharged on by mouth doxycycline. But had some difficulty getting a prescription for this. He notes over the past several days he had increasing redness and swelling in the infected area. He denies any fevers or chills at this point. He was hospitalized here from December 30 to January 02. Patient had negative venous duplex exam of his left leg in the emergency room today. Review of Systems: Denies any fevers chills, denies any nausea or vomiting. All other review systems are negative except for as in history of present illness. Allergies Coded Allergies: No Known Allergies (Verified , 08/01/15) Home Medications Scheduled Benztropine Mesylate (Benztropine Mesylate) 1 Mg Tablet 1 MG PO BID Doxycycline Hyclate (Doxycycline Hyclate) 100 Mg Capsule 100 MG PO BID Olanzapine (Olanzapine) 5 Mg Tablet 15 MG PO HS Olanzapine (Olanzapine) 10 Mg Tablet 10 MG PO QAM Paroxetine (Paroxetine) 20 Mg Tablet 20 MG PO HS Trazodone (Trazodone) 100 Mg Tablet 100 PO HS PMH Past Medical History Past Medical History Notes: Family contacts: Yosi Cruz (son): [phone] Lay Cruz (daughter) Patient was recently admitted from 06/05-06/12 after being EMMETT'd after being found to be a danger to himself and others. Patient was also under the influence of alcohol at that time believed that his family was conspiring against him. Dx Acute psychosis Past Medical History Per previous H&P: 1. Delusional disorder, provisional. 2. Previous polysubstance abuse including IV heroin and occasional current cocaine Past Surgical History denies Family History Denies any history of infectious disease problems in his family Social History Hx Alcohol Use: Yes Alcoholic Drinks Per Day: 3 per day Hx Substance Use: Yes (cocaine yesterday per patient) Hx Tobacco Use: Yes Smoking Status: Current Every Day Smoker Living Arrangement: [facility] Exam Vital Signs Vital Sign - Last Date Time Temp Pulse Resp B/P Pulse Ox O2 Delivery O2 Flow Rate FiO2 01/07/17 19:00 36.4 62 16 159/89 99 Room Air Exam Constitutional: Middle-aged male in no acute distress Head: Normocephalic Eyes: PERRLA DC EOMI Neck: No adenopathy Chest: Clear to auscultation COr: Regular rate and rhythm S1-S2 without murmur Abdomen: Soft nontender bowel sounds present Extremities: Left leg reveals erythema and swelling mostly over the anterior benton area but extending posteriorly also there is no drainage noted. Right leg reveals no edema or swelling Psych: Mood and affect are appropriate Neuro: Alert and oriented 3, Skin as above about has no rashes otherwise Lab and Diagnostics Result Diagram: 01/07/17171401/07/171714 Assessment & Plan #Left leg cellulitis, subacute, present on admission -Patient was having trouble getting his oral antibiotics from the pharmacy and notes that had increased in size and hence presented to the emergency room -We will go ahead and continue with IV vancomycin which was given last visit and in the emergency room today -We will place on by mouth lactobacillus #Mood disorder, chronic, present on admission We will continue his home medication regimen #DVT prophylaxis We will use subcutaneous Lovenox #CODE STATUS Full code GI Prophylaxis: H2 merary VTE Prophylaxis Indicated: Meets Criteria for Anticoag Therapy Resuscitation Status: CPR: Attempt Resuscitation Time spent 60 minutes Romina Dowd MD Jan 07, 2017 20:32
[2017-01-07] MEDS: PARoxetine 20 mg Tablet PO SCH (21:08)
[2017-01-08 00:30] VITALS: BP 147/83; PULSE 66; RESP 16; O2SAT 97
[2017-01-08] MEDS: Vancomycin Inj 1,250 MG in 0.9% Sodium Chloride 250 ML IV SCH ×2 (02:42→10:01)
[2017-01-08 04:30] VITALS: BP 134/85; PULSE 69; RESP 16; O2SAT 96
[2017-01-08 07:02] LABS: BASOPHILS % (AUTO) 0.4 % (0-3); EOSINOPHILS % (AUTO) 4.5 % (0-5); Mean Corpuscular Hemoglobin 30.9 pg (27.0-35.0); Mean Corpuscular Volume 95.5 fL (81-100); NEUTROPHILS % (AUTO) 34.8 % (40-74); Platelet Count 327 bil/L (150-400)
[2017-01-08 07:40] VITALS: BP 148/74; PULSE 68; RESP 16; O2SAT 97
[2017-01-08] MEDS: Vancomycin Dose per Pharmacist XX SCH (08:30)
[2017-01-08 12:35] VITALS: BP_SYST 122; BP_SYST 148; BP_DIAS 70; BP_DIAS 74; PULSE 68; PULSE 71; RESP 17; O2SAT 95; O2SAT 97
--- NOTE | 2017-01-08 13:31 | NUR ---
Assessment done at 0740, charted under 1235 Addendum: 01/08/17 at 1332 by RADHA EPPERSON RN Amended: Links added.
--- NOTE | 2017-01-08 16:15 | CONS ---
[address] [address] CONSULTATION REPORT PATIENT: AUTUMN MARCOS : 1960 MR#: [id number] ADMIT: 01/07/2017 JOB ID: [id number] DATE OF SERVICE: 01/08/2017 INFECTIOUS DISEASE CONSULTATION: I thank Dr. Sotelo for this timely consult. REASON FOR CONSULTATION: Recurrent left lower extremity cellulitis. HISTORY OF PRESENT ILLNESS: The patient is a 56-year-old gentleman with recurrent left lower extremity cellulitis. He has a fairly benign past medical history though he has been noted to have a history of IV heroin and occasional cocaine in the past. He is also felt to have a delusional disorder. The patient reports that he had a significant cellulitic episode in the distant past involving his left lower extremity. More recently, he was admitted to this facility over the 30 of December weekend with left lower extremity cellulitis. He was treated with a couple days of vancomycin and discharged on doxycycline. The patient had a couple day delay while he was trying to get the doxycycline and then by the time he was able to get the doxycycline, the cellulitis seemed to have flared once again and progressed until he was admitted once again yesterday on January 07 to this facility. He basically just has swelling and tenderness between the knee and the ankle which is the same problem that brought him in earlier on December 30. There is no associated constitutional symptoms such as fevers, chills, headache, sore throat, nausea vomiting or diarrhea. He has no pain in the groin. No swollen lymph nodes he is aware of and no drainage from the leg. PAST MEDICAL HISTORY: 1. Delusional disorder. 2. Previous polysubstance use including IV heroin and cocaine. It is noted in the chart that he uses cocaine even occasionally at this time. 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 He says that he drinks only sparingly and he is an ongoing cigarette smoker, however. He does do cocaine on occasion and that includes the day prior to admission. FAMILY HISTORY: Negative for tuberculosis in first and second-degree relatives. REVIEW OF SYSTEMS: The patient states he has no significant headache. No visual change. No sore throat. No cough. No shortness of breath or chest pain. No nausea, vomiting, diarrhea, dysuria. No synovitis of any joint. His only skin problem is the recurrent cellulitis in the left lower extremity. The remainder of the review of systems is negative. PHYSICAL EXAMINATION: Reveals an afebrile gentleman, temperature 37.1, pulse 71, respiratory rate 17, blood pressure 122/70. He is saturating well on room air. Examination of the mental status reveals it to be clear. Head without trauma. Eyes without conjunctivitis. No scleral icterus. No thrush. No hairy leukoplakia. His neck is without adenopathy. Supple. Lungs clear. Cardiac tones: Regular rate and rhythm without murmur. Abdomen: Soft, nontender without hepatosplenomegaly. He is a bit obese with a BMI of 32. No ascites. However, he does not have a Davies catheter. He does not have suprapubic fullness. Does not have evidence of synovitis of any joint. Bilateral severe fungal infection all 10 toenails. The left lower extremity between the knee and the ankle has a diffuse circumferential cellulitis without bullae, skin breakdown or weeping. This area is somewhat warm but not especially tender. There is about 2+ edema as well in that left lower extremity below the knee and there is no edema on the other foot. No other skin rash is noted. LABORATORY STUDIES: Include a white blood count 5400. He has an unusual neutrophils to lymphocyte ratio, 35% neutrophils, 49% lymphs. His platelet count though is normal. His creatinine 0.9. LFTs normal. Albumin 3.2. Note that the patient is hepatitis C antibody positive and that was done from a prior admission. He has blood cultures from December 30 which are negative. Repeat blood cultures done yesterday are pending. A MRSA screen on December 30 was negative. An abscess culture back in 2014 was just normal willy. Culture of a wound in 2008 grew MRSA. IMAGING: Includes an ultrasound of the leg which shows no clot but he did have enlarged left inguinal lymph nodes and that was done yesterday. IMPRESSION: This patient has a recurrent cellulitis which has now caused two admissions in the last 10 days of his left lower extremity. This could be Staph aureus, as the patient has had recurrent Staph infections documented twice in the past decade in the computer but I think it is more likely to be streptococcal. Though I cannot palpate any inguinal adenopathy, the technical maintenance specialist was able to find some and that often correlates very well with streptococcal disease. That said, MRSA remains a possibility as he has had MRSA infection in the distant past. The patient has already had a rough time with this particular episode of cellulitis having had two admissions for what seems like a relatively agew-yn-kjpbrjev case of cellulitis. Prior to his December 30 admission, he received a trial of Keflex which apparently failed. Then he was admitted to receive vanco and was sent home on doxycycline. Because of troubles getting the doxycycline, perhaps his cellulitis worsened and he is now back again with another extensive and difficult inpatient admission which takes away from his job. Given the fact he has also a history of IV drug use in the past, I do not feel comfortable about sending the patient out with IV antibiotics and I am not sanguine about sending him with oral antibiotics either as we have failed twice already this month with the Keflex followed by the michael. RECOMMENDATIONS: 1. Will give the patient a single dose of oritavancin. 2. This will replace all other antibiotics and he can be discharged at any time. 3. I do not see an HIV in the chart and we do know this patient has hepatitis C and is certainly engaged in high risk behavior at some time so I think it is indicated to check an HIV. FINAL RECOMMENDATIONS: 1. Will check an HIV test. 2. We are going to give the patient a single dose of oritavancin to get around possible issues of compliance and tolerance with oral medicines in this patient who keeps getting admitted and has a history of IV drug use. 3. ID will go ahead and sign off at this time. Please call if there are additional questions or issues.
[2017-01-08 16:21] LABS: APPEARANCE,URINE CLEAR (CLEAR,HAZY); COLOR,URINE STRAW (YELLOW); OCCULT BLOOD,URINE NEGATIVE (NEGATIVE); PH,URINE 5.5 (5.0-8.0); UROBILINOGEN,URINE NORMAL (NORMAL)
--- NOTE | 2017-01-08 16:37 | NUR ---
Social Work: Multidisciplinary Rounds Pt discussed in am rounds. Pt is not medically stable for discharge. Pt was discharged on 01/01 with no sw needs. Pt failed to fill his medications at [facility] despite them being faxed. VALIDATION CONSULTANT will see the pt to complete IA due to readmission and multiple providers involved in care however will not see pt today due to high census. SHARA Andre
[2017-01-08 16:40] VITALS: BP 126/82; PULSE 61; RESP 16; O2SAT 96
[2017-01-08] MEDS ORDERED: Oritavancin Diphosphate 1,200 MG in Dextrose 5% 880 ML IV ONE (17:00)
[2017-01-08] MEDS ORDERED: Vancomycin Serum Trough XX ONE (17:30)
--- NOTE | 2017-01-08 19:33 | NUR ---
pain/activity Pt. reported left leg to be 3/10; "tingling, ache." Pt. was given 975mg of po tylenol with good relief. Pt. has been able to ambulate in khan and in room. IV abx. infusing per orders. Encouraging pt. to elevate left leg on pillows due to swelling. Report given to ADRIANA Jackson to continue care.
[2017-01-08] MEDS: PARoxetine 20 mg Tablet PO SCH (20:24)
[2017-01-08 23:33] VITALS: BP 119/72; PULSE 61; RESP 14; O2SAT 96
--- NOTE | 2017-01-08 23:58 | PCM.PNMED ---
Subjective Date of Service Jan 08, 2017 Subjective The patient complains he has had minimal improvement cellulitis since admission. He has no other new complaints at this time. Exam Vital Signs Vital Sign - Last Date Time Temp Pulse Resp B/P Pulse Ox O2 Delivery O2 Flow Rate FiO2 01/08/17 23:33 36.5 61 14 119/72 96 Room Air Intake and Output 01/07/17 01/07/17 01/08/17 Cumulative From/Thru 15:00 23:00 07:00 01/07/17 16:01 - 01/08/17 06:08 Intake Total 999 ml 550 ml 1549 ml Balance 999 ml 550 ml 1549 ml Intake Oral 300 ml 300 ml IV Total 999 ml 250 ml 1249 ml # Voids 2 2 Exam General: Patient is in no apparent distress lying supine in bed with head elevated approximately 30 HEENT: Head is atraumatic and normocephalic. Eyes: Pupils are equally round and reactive to light and accommodation. Extraocular muscles are intact. Sclera are white, anicteric. Subconjunctival mucosa is pink. Ears and nose are unremarkable. Oropharynx: There is no mucosal lesions, there is no thrush, there is no pharyngitis. Neck: Is supple, there are no nodes, or masses or tenderness. Chest: Is clear to auscultation and percussion. There are no rales, rhonchi, wheezes or rubs. Heart: Rate, rhythm is regular. There is no murmur, rub or gallop. Abdomen: Good bowel sounds are present. Abdomen is soft, nontender, no organomegaly or masses were appreciated. Extremities: The left lower extremity is significant for marked erythema from ankle to knee with 1-2+ edema. Right lower extremities unremarkable. Patient does have onychomycosis of all the toenails on both feet. Neurologic: There are no focal neurological deficits. Cranial nerves II through XII are intact. There are no sensory or motor deficits. Psychiatric: Patients mood is calm and shows no sign of agitation. Genital: Deferred Rectal: Deferred Lab and Diagnostics Result Diagram: 01/08/17 0640 01/08/17 0640 X-Rays, CTs and MRIs PROCEDURE: US VEINOUS LEG DUPLEX UNILATERAL, LEFT INDICATIONS: swelling erthyma TECHNIQUE: Real-time imaging, as well as color and pulse Doppler interrogation, were performed of the lower extremity deep veins from the inguinal ligament to the popliteal fossa. COMPARISON: None. FINDINGS: The deep veins are normally compressible, and free of intraluminal thrombus. Color and pulse Doppler demonstrate normal phasic intraluminal flow. There is normal augmentation response to distal compression maneuver. Left groin inguinal lymph nodes measuring 1.9 cm IMPRESSION: No evidence of deep venous thrombosis. Enlarged left inguinal lymph nodes, nonspecific. Please correlate clinically. Dictated by: Freddy Lloyd M.D. on 01/07/2017 at 18:49 Approved by: Freddy Lloyd M.D. on 01/07/2017 at 18:52 Assessment & Plan This is a 56-year-old male who was recently admitted to this hospital with left leg cellulitis and was treated with IV vancomycin. He does have a history of oxacillin resistant staph aureus in the past. He was discharged on by mouth doxycycline. But had some difficulty getting a prescription for this. He notes over the past several days he had increasing redness and swelling in the infected area. He denies any fevers or chills at this point. He was hospitalized here from December 30 to January 02. Patient had negative venous duplex exam of his left leg in the emergency room today. The patient was admitted to the hospitalist service for further evaluation and treatment. # Left leg cellulitis, subacute, present on admission. Active -Patient was having trouble getting his oral antibiotics from the pharmacy and notes that had increased in size and hence presented to the emergency room - The patient was started on IV vancomycin which was given last visit and in the emergency room today - We will continue on by mouth lactobacillus - Due to the recurrent nature of this patient's cellulitis and readmission, I have consulted Dr. Pino Retana for infectious disease consultation. I appreciate Dr. Retana this time and expertise. Dr. Retana recommends the following: "1. Will check an HIV test. 2. We are going to give the patient a single dose of oritavancin to get around possible issues of compliance and tolerance with oral medicines in this patient who keeps getting admitted and has a history of IV drug use. 3. ID will go ahead and sign off at this time. Please call if there are additional questions or issues." # Mood disorder, chronic, present on admission We will continue his home medication regimen #DVT prophylaxis We will use subcutaneous Lovenox #CODE STATUS Full code Disposition: If the patient is stable will discharge home in a.m. Will check labs in a.m. as well. Pain Evaluation: Adequate Pain Control GI Prophylaxis: H2 merary Resuscitation Status: CPR: Attempt Resuscitation DeepakShyam MD Jan 08, 2017 23:57
--- NOTE | 2017-01-09 01:26 | NUR ---
Ambulation Pt was encouraged to walk around the unit. He walked with steady gait about 3 laps around unit and denies SOB. Encouraged sitting in chair while awake and watching TV rather than lying in bed, possibly during day shift and to continue ambulation.
[2017-01-09 07:05] LABS: BASOPHILS % (AUTO) 0.4 % (0-3); EOSINOPHILS % (AUTO) 4.6 % (0-5); MONOCYTES % (AUTO) 6.8 % (4-12); Mean Corpuscular Hemoglobin 31.4 pg (27.0-35.0); Mean Corpuscular Volume 95.3 fL (81-100); NEUTROPHILS % (AUTO) 52.1 % (40-74); Platelet Count 322 bil/L (150-400)
[2017-01-09 08:33] VITALS: BP 118/67; PULSE 77; RESP 16; O2SAT 96
--- NOTE | 2017-01-09 11:03 | NUR ---
Social Work: Initial Assessment/Multdisciplinary Rounds D: Per EMR review, pt is a 56 year old male admitted for Left Leg Cellulitis, Failed Out patient. Pt is [facility]; pt has no LTC or VA benefits. PCP is Della Davis MD. NOK is Lay Cruz, dtr, . AD not completed- pt declined info. Readmit score is high, 5/8- pt is a readmit and was discharged on 01/01 with no sw needs. Pt screened in for assessment based on readmission and multiple providers involved in care. Pt discussed in am rounds. Pt has a history of CD and MH; order not placed at this time as pt has no interest in quitting and is already engaged in services. HOUSEPERSON met with the patient at bedside to complete d/c planning. Sw role explained, contact information and discharge planning checklist provided. Pt lives in [place] in a home with roommates. Pt states he uses no DME and is I at baseline- pt has been ambulating I during admission. Pt has never had HH or skilled rehab. Pt expresses no concerns about discharge home and states that he has a residential case manager through the [facility] PACT program. Pt states that he regularly uses cocaine and alcohol and that he sees a counselor on a regular basis to address these things however he is not committed to sobriety. Pt states that he has a delusional MH diagnosis and that his meds are managed by the PACT program; he feels that he is stable at this time and has not experienced any suicidal ideation, plan or intent since 2002. Pt declined further community resources for CD or MH and expresses no concerns about idscharge. pt will use community transportation. pt did not provide consent for HOUSEPERSON to contact his PACT team Yuridia BARBOSA. A: Pt who is I at baseline; open with PACT team. P: Pt to discharge home with no further sw needs; Pt to follow up with his outpatient PACT team. SHARA Andre Addendum: 01/09/17 at 1113 by VALERIA FALCON Amended: Links added.
--- NOTE | 2017-01-09 12:11 | PCM.DIMED ---
Discharge Instructions Date of Service Jan 09, 2017 Dates of Hospitalization Jan 07, 2017 at 18:31 Discharge Diagnosis Discharge Diagnosis Cellulitis of the Left Lower extremity Diet Discharge Diet: Heart Healthy Activity Discharge Activity: Other (Keep left leg elevated when not ambulating.) Call your provider Call your provider for: Fever or Chills, Shortness of breath, Bleeding, Chest pain, Vomitting, Excessive diarrhea, Weakness (unilateral) Patient Instructions Follow-up Provider: Della Davis MD Follow-up with PCP in: 2 weeks Shyam Sotelo MD Jan 09, 2017 12:11
[2017-01-09] MEDS ORDERED: Lactobacillus Acidophilus PO (12:14)
--- NOTE | 2017-01-09 13:15 | NUR ---
Discharge Pt d/c by self w/ staff at 1255. Time taken to go over d/c plan. Reinforced teaching about s/sx of returning infection. Pt will f/u w/ pcp in 2 weeks. Pt felt comfortable w/ d/c plan, and had no other questions or concerns.
--- NOTE | 2017-01-10 00:37 | PCM.DC.MED ---
Discharge Summary Date of Service Jan 09, 2017 Dates of Hospitalization Date of Hospital Admission Jan 07, 2017 at 18:31 Date of Discharge: Jan 09, 2017 Providers: Admitting Physician: Romina Dowd MD Primary Care Physician: Della Davis MD Attending Physician: Shyam Sotelo MD Diagnosis at Time of Discharge Diagnosis at Time of Discharge Cellulitis of the Left Lower extremity Procedures XRay, CTs & MRIs PROCEDURE: US VEINOUS LEG DUPLEX UNILATERAL, LEFT INDICATIONS: swelling erthyma TECHNIQUE: Real-time imaging, as well as color and pulse Doppler interrogation, were performed of the lower extremity deep veins from the inguinal ligament to the popliteal fossa. COMPARISON: None. FINDINGS: The deep veins are normally compressible, and free of intraluminal thrombus. Color and pulse Doppler demonstrate normal phasic intraluminal flow. There is normal augmentation response to distal compression maneuver. Left groin inguinal lymph nodes measuring 1.9 cm IMPRESSION: No evidence of deep venous thrombosis. Enlarged left inguinal lymph nodes, nonspecific. Please correlate clinically. Dictated by: Freddy Lloyd M.D. on 01/07/2017 at 18:49 Approved by: Freddy Lloyd M.D. on 01/07/2017 at 18:52 Brief History This is a 56-year-old male who was recently admitted to this hospital with left leg cellulitis and was treated with IV vancomycin. He does have a history of oxacillin resistant staph aureus in the past. He was discharged on by mouth doxycycline. But had some difficulty getting a prescription for this. He notes over the past several days he had increasing redness and swelling in the infected area. He denies any fevers or chills at this point. He was hospitalized here from December 30 to January 02. Patient had negative venous duplex exam of his left leg in the emergency room today. Hospital Course This is a 56-year-old male who was recently admitted to this hospital with left leg cellulitis and was treated with IV vancomycin. He does have a history of oxacillin resistant staph aureus in the past. He was discharged on by mouth doxycycline. But had some difficulty getting a prescription for this. He notes over the past several days he had increasing redness and swelling in the infected area. He denies any fevers or chills at this point. He was hospitalized here from December 30 to January 02. Patient had negative venous duplex exam of his left leg in the emergency room today. The patient was admitted to the hospitalist service for further evaluation and treatment. # Left leg cellulitis, subacute, present on admission. Active -Patient was having trouble getting his oral antibiotics from the pharmacy and notes that had increased in size and hence presented to the emergency room - The patient was started on IV vancomycin which was given last visit and in the emergency room today - We will continue on by mouth lactobacillus - Due to the recurrent nature of this patient's cellulitis and readmission, I have consulted Dr. Pino Retana for infectious disease consultation. I appreciate Dr. Retana this time and expertise. Dr. Retana recommends the following: "1. Will check an HIV test. 2. We are going to give the patient a single dose of oritavancin to get around possible issues of compliance and tolerance with oral medicines in this patient who keeps getting admitted and has a history of IV drug use. 3. ID will go ahead and sign off at this time. Please call if there are additional questions or issues." # Mood disorder, chronic, present on admission We will continue his home medication regimen #DVT prophylaxis We will use subcutaneous Lovenox #CODE STATUS Full code Disposition: If the patient is stable will discharge home in a.m. Will check labs in a.m. as well. Exam Vital Signs (Last) Date Time Temp Pulse Resp B/P Pulse Ox O2 Delivery O2 Flow Rate FiO2 01/09/17 08:33 36.5 77 16 118/67 96 Room Air Exam General: Patient is in no apparent distress lying supine in bed with head elevated approximately 30 HEENT: Head is atraumatic and normocephalic. Eyes: Pupils are equally round and reactive to light and accommodation. Extraocular muscles are intact. Sclera are white, anicteric. Subconjunctival mucosa is pink. Ears and nose are unremarkable. Oropharynx: There is no mucosal lesions, there is no thrush, there is no pharyngitis. Neck: Is supple, there are no nodes, or masses or tenderness. Chest: Is clear to auscultation and percussion. There are no rales, rhonchi, wheezes or rubs. Heart: Rate, rhythm is regular. There is no murmur, rub or gallop. Abdomen: Good bowel sounds are present. Abdomen is soft, nontender, no organomegaly or masses were appreciated. Extremities: The left lower extremity erythema is significantly improved today with wrinkling of skin and decrease edema. Right lower extremities unremarkable. Patient does have onychomycosis of all the toenails on both feet. Neurologic: There are no focal neurological deficits. Cranial nerves II through XII are intact. There are no sensory or motor deficits. Psychiatric: Patients mood is calm and shows no sign of agitation. Genital: Deferred Rectal: Deferred Test 01/07/17 17:15 01/08/17 15:59 01/08/17 16:02 01/09/17 06:45 Lactic Acid Level 1.0mmol/L (0.4-2.0) Urine Color Straw (YELLOW) Urine Appearance Clear (CLEAR,HAZY) Urine pH 5.5 (5.0-8.0) Urine Specific [place] 1.010 (1.003-1.035) Urine Protein Negativemg/dL (NEG,TRACE) Urine Glucose (UA) Negativemg/dL (NEGATIVE) Urine Ketones Negativemg/dL (NEGATIVE) Urine Occult Blood Negative (NEGATIVE) Urine Nitrite Negative (NEGATIVE) Urine Bilirubin Negative (NEGATIVE) Urine Urobilinogen Normalmg/dL (NORMAL) Urine Leukocyte Esterase Negative (NEGATIVE) Urine RBC 0-2/hpf (0-2) Urine WBC 0-5/hpf (0-5) Urine Epithelial Cells Occasional/hpf (NONE-MOD) Urine Crystals None seen (NONE SEEN) Urine Bacteria None/hpf (NONE-FEW) Urine Hyaline Casts None/lpf (NONE) Urine Granular Casts None seen (NONE SEEN) Urine Waxy Casts None seen (NONE SEEN) Urine Red Blood Cell Casts None seen (NONE SEEN) Urine White Blood Cell Casts None seen (NONE SEEN) Urine Mucus None seen (None Seen) Urine Trichomonas None seen (NONE SEEN) Urine Yeast None (NONE SEEN) Urinalysis Comment None Urine Culture Reflexed Not indicated Urine Opiates Screen Negative Urine Methadone Screen Negative Urine Barbiturates Screen Negative Urine Amphetamines Screen Negative Urine Benzodiazepines Screen Negative Urine Cocaine Metabolite Screen Positive Urine Cannabinoids Screen Negative Vancomycin Level Trough 13.7mcg/mL HIV (1&2) Ag and Ab, 4th Generation Non reactive (Non Reactive) White Blood Count 7.0th/mm3 (3.8-10.1) Red Blood Count 4.30mil/mm3 (4.40-5.80) Hemoglobin 13.5g/dL (13.8-17.2) Hematocrit 41.0% (41.0-50.0) Mean Corpuscular Volume 95.3fL (81-100) Mean Corpuscular Hemoglobin 31.4pg (27.0-35.0) Mean Corpuscular Hemoglobin Concent 32.9% (32.0-37.0) Red Cell Distribution Width 13.5% (12.3-15.4) Platelet Count 322bil/L (150-400) Neutrophils (%) (Auto) 52.1% (40-74) Lymphocytes (%) (Auto) 35.7% (14-46) Monocytes (%) (Auto) 6.8% (4-12) Eosinophils (%) (Auto) 4.6% (0-5) Basophils (%) (Auto) 0.4% (0-3) Sodium Level 142mEq/L (134-144) Potassium Level 4.6mEq/L (3.5-5.2) Chloride Level 105mEq/L (97-108) Carbon Dioxide Level 27mmol/L (18-29) Blood Urea Nitrogen 12mg/dL (6-24) Creatinine 1.02mg/dL (0.76-1.27) Estimat Glomerular Filtration Rate 80mL/min (>59) Glucose Level 112mg/dL (60-99) Calcium Level 9.2mg/dL (8.5-10.1) Total Bilirubin 0.2mg/dL (0.0-1.2) Aspartate Amino Transf (AST/SGOT) 14U/L (0-50) Alanine Aminotransferase (ALT/SGPT) 17U/L (0-44) Alkaline Phosphatase 67U/L (25-150) Total Protein 6.8g/dL (6.4-8.4) Albumin 3.7g/dL (3.4-5.0) Discharge Medications Discharge Medications ([Lactobacillus Acidophilus]) 1 TABLET TABLET 2 TABLET PO PCHS Prescribed by: RADHA SOTELO MD Benztropine Mesylate (Benztropine Mesylate) 1 Mg Tablet 1 MG PO BID Prescribed by: NATA TONG MD Olanzapine (Olanzapine) 5 Mg Tablet 15 MG PO HS Prescribed by: NATA TONG MD Olanzapine (Olanzapine) 10 Mg Tablet 10 MG PO QAM (Reported) Paroxetine (Paroxetine) 20 Mg Tablet 20 MG PO HS Prescribed by: NATA TONG MD Trazodone (Trazodone) 100 Mg Tablet 100 PO HS (Reported) Followup Plan Disposition: Patient is being discharged home today. Discharge Diet: Heart Healthy Discharge Activity: Other (Keep left leg elevated when not ambulating.) Follow-up Provider: Della Davis MD Follow-up with PCP in: 2 weeks Time spent Time spent on discharging this patient was greater than 35 minutes, over half of which was involved in counseling and coordination of care. Shyam Sotelo MD Jan 10, 2017 00:37
== END 2017-01-09 12:55 | disposition home or self-care (01) | DRG 603 ==
LOC: SED 15:58 → MOC 18:31
PROVIDERS: ADMIT Specialist; ATTEND Specialist
DX: L03.116 Cellulitis of left lower limb (principal); F17.210 Nicotine dependence, cigarettes, uncomplicated; F39 Unspecified mood [affective] disorder